=== PATIENT | male | born 1970 | race Caucasian/White ===

== ENCOUNTER 2021-10-02 11:35 | Emergency (ER) | payer OTHER ==
[~2021-10-02] VITALS: Ht 175.3 cm; Wt 88.5 kg
[2021-10-02] MEDS ORDERED: GENVOYA TABLET1 EACH (11:41)
== END 2021-10-02 15:37 | disposition home or self-care (01) ==
LOC: ER 11:35
DX: K52.89 Other specified noninfective gastroenteritis and colitis (principal); Z88.6 Allergy status to analgesic agent

== ENCOUNTER 2021-12-02 09:49 | Emergency (ER) | payer OTHER ==
[~2021-12-02] VITALS: Ht 175.3 cm; Wt 90.7 kg
[~2021-12-02 09:49] MED LIST: GENVOYA TABLET1 EACH
== END 2021-12-02 15:11 | disposition home or self-care (01) ==
LOC: ER 09:49
DX: K29.70 Gastritis, unspecified, without bleeding (principal); A49.3 Mycoplasma infection, unspecified site; Z20.822 Contact with and (suspected) exposure to COVID-19

== ENCOUNTER 2023-03-05 14:36 | Emergency (ER) | payer OTHER ==
[~2023-03-05] VITALS: Ht 172.7 cm; Wt 95.3 kg
[2023-03-05] MEDS ORDERED: LOSARTAN POTASS25 MG PO (15:11)
[2023-03-05] MEDS ORDERED: COZAAR25 MG PO (15:12)
[2023-03-05] MEDS ORDERED: BACTRIM DS TAB1 EACH PO (19:52)
== END 2023-03-05 20:59 | disposition home or self-care (01) ==
LOC: ER 14:36
DX: N39.0 Urinary tract infection, site not specified (principal); R10.9 Unspecified abdominal pain; Z88.6 Allergy status to analgesic agent

== ENCOUNTER 2025-06-13 22:02 | Inpatient (IN) | payer OTHER ==
[~2025-06-13] VITALS: Ht 172.7 cm; Wt 88.5 kg
[~2025-06-13 22:02] MED LIST changes: +BACTRIM DS TAB1 EACH PO; +COZAAR25 MG PO; +LOSARTAN POTASS25 MG PO
[2025-06-13] MEDS ORDERED: GENVOYA TABLET1 EACH PO (22:07)
[2025-06-13] MEDS ORDERED: MORPHINE SULFATE 4 MG/ML CARTRIDGE IV STA (23:33)
[2025-06-13] MEDS ORDERED: 0.9 % SODIUM CHLORIDE 1,000 ML IV ONE (23:45)
[2025-06-14] MEDS ORDERED: CEFTRIAXONE SODIUM 1,000 MG VIAL IV STA (00:04)
[2025-06-14 00:07] LABS: BASO % 0.5 % (0.1-1.2); EOS # 0.10 (0.04-0.54); EOS % 0.5 % (0.7-7.0); LYMPH # 2.75 (1.18-3.74); LYMPH % 14.2 % (19.3-53.1); MEAN PLATELET VOLUME 9.10 fl (9.4-12.4); MONO # 2.25 (0.24-0.82); MONO % 11.7 % (4.7-12.5); NEUT # 13.87 (1.56-6.13); NEUT % 71.9 % (34.0-71.1); RED CELL DISTRIBUTION WIDTH 13.2 % (11.6-14.4)
[2025-06-14 00:33] LABS: INR 1.09
[2025-06-14 00:40] LABS: ALT/SGPT 56.0 U/L (12-78); AST/SGOT 23.0 U/L (15-37); BILIRUBIN TOTAL 0.47 mg/dL (0.3-1.2); BUN CREA RATIO 16.0 (7.0-25.0); CREATININE SERUM 1.29 mg/dL (0.70-1.30); GFR 58.49; GLOBULINA 3.5 G/DL (2.4-3.5); GLUCOSE FASTING 114.0 mg/dL (65-100); OSMOLALITY SERUM 274.0 MOSM/KG (275-295)
[2025-06-14] MEDS ORDERED: CEFTRIAXONE SODIUM 1,000 MG VIAL ONE (01:01)
[2025-06-14] MEDS ORDERED: ONDANSETRON HCL 2 MG/ML VIAL IV STA (01:33)
[2025-06-14] MEDS ORDERED: ONDANSETRON HCL 2 MG/ML VIAL ONE (01:40)
[2025-06-14] MEDS ORDERED: SODIUM CHLORIDE 0.45 % 1,000 ML IV SCH (16:15)
[2025-06-14] MEDS ORDERED: ONDANSETRON HCL 4 MG in DEXTROSE 5 % IN WATER 50 ML IV PRN (16:45)
[2025-06-14] MEDS ORDERED: LINEZOLID IN DEXTROSE 5% 600 MG/300 ML PIGGYBAG IV SCH (17:00)
[2025-06-14 17:50] LABS: BASO % 0.6 % (0.1-1.2); EOS # 0.24 (0.04-0.54); EOS % 1.6 % (0.7-7.0); LYMPH # 2.47 (1.18-3.74); LYMPH % 16.7 % (19.3-53.1); MEAN PLATELET VOLUME 9.20 fl (9.4-12.4); MONO # 1.50 (0.24-0.82); MONO % 10.1 % (4.7-12.5); NEUT # 10.39 (1.56-6.13); NEUT % 70.1 % (34.0-71.1); RED CELL DISTRIBUTION WIDTH 13.1 % (11.6-14.4)
[2025-06-14] MEDS ORDERED: ACETAMINOPHEN 500 MG GEL..CAP PO SCH (21:00)
[2025-06-14 22:14] VITALS: BP 111/75; O2SAT 97
[2025-06-15 02:29] VITALS: BP 101/66; O2SAT 98
[2025-06-15] MEDS ORDERED: LACTOBACILLUS ACIDOPHILUS 1 CAP CAP PO SCH (09:00)
[2025-06-15] MEDS ORDERED: LINEZOLID IN DEXTROSE 5% 600 MG/300 ML PIGGYBAG IV SCH (09:00)
[2025-06-15 10:22] VITALS: BP 119/82; O2SAT 97
[2025-06-15 10:57] LABS: URINE APPEARANCE Clear; URINE BILIRRUBIN Negative (NEGATIVE); URINE BLOOD Negative; URINE COLOR Yellow; URINE GLUCOSE Negative (NEGATIVE); URINE KETONE Negative (NEGATIVE); URINE LEUKOCYTE Negative; URINE NITRATE Negative; URINE PROTEIN Negative (NEGATIVE); URINE UROBILINOGEN 0.2 E.U./dl
[2025-06-15 11:01] LABS: URINE BACTERIA 4.7 uL (0.0-1933); URINE EPITHELIAL CELLS 3.6 uL (0.0-38.8)
[2025-06-15 11:20] LABS: URINE CAST 0.14 uL (0.0-1.40); URINE RBC 0.7 uL (0.0-20.8); URINE WBC 1.0 uL (0.0-23.2)
[2025-06-15 18:19] VITALS: BP 115/70
[2025-06-16 02:42] VITALS: BP 96/64; O2SAT 95
[2025-06-16] MEDS ORDERED: MUPIROCIN 22 GM OINT..GM TUBE NASAL SCH (09:00)
[2025-06-16] MEDS ORDERED: CHLORHEXIDINE GLUCONATE 120 ML BOTTLE TOP SCH (09:00)
[2025-06-16 09:27] VITALS: BP 113/76; O2SAT 97
[2025-06-16 19:33] VITALS: BP 125/84
[2025-06-17 01:23] VITALS: BP 93/60; O2SAT 97
[2025-06-17 10:16] VITALS: BP 104/69; O2SAT 97
[2025-06-17 19:10] VITALS: BP 101/42
[2025-06-18 01:17] VITALS: BP 95/57; O2SAT 96
[2025-06-18 06:28] LABS: BASO % 1.0 % (0.1-1.2); EOS # 0.17 (0.04-0.54); EOS % 1.7 % (0.7-7.0); LYMPH # 2.72 (1.18-3.74); LYMPH % 28.0 % (19.3-53.1); MEAN PLATELET VOLUME 9.10 fl (9.4-12.4); MONO # 0.88 (0.24-0.82); MONO % 9.0 % (4.7-12.5); NEUT # 5.40 (1.56-6.13); NEUT % 55.6 % (34.0-71.1); RED CELL DISTRIBUTION WIDTH 13.3 % (11.6-14.4)
[2025-06-18 06:57] LABS: ALT/SGPT 73.0 U/L (12-78); AST/SGOT 36.0 U/L (15-37); BILIRUBIN TOTAL 0.18 mg/dL (0.3-1.2); BUN CREA RATIO 21.0 (7.0-25.0); CREATININE SERUM 1.19 mg/dL (0.70-1.30); GFR 64.2; GLOBULINA 3.5 G/DL (2.4-3.5); GLUCOSE FASTING 106.0 mg/dL (65-100); OSMOLALITY SERUM 284.0 MOSM/KG (275-295)
[2025-06-18 07:37] LABS: BAND MAN 2.0 %; LYMPHOCYTE MAN 37.0 %; MONOCYTE MAN 6.0 %; NEUTROPHILS MAN 53.0 %
[2025-06-18] MEDS ORDERED: ELVITEG/COBI/EMTRIC/TENOFO ALA 1 EACH TABLET PO SCH (09:00)
[2025-06-18 09:42] VITALS: BP 114/73; O2SAT 99
[2025-06-18 17:55] VITALS: BP 113/69; O2SAT 97
[2025-06-19 03:22] VITALS: BP 98/63; O2SAT 97
[2025-06-19 08:39] VITALS: BP 109/70; O2SAT 99
[2025-06-19 17:11] VITALS: BP 127/76; O2SAT 95
[2025-06-20 02:44] VITALS: BP 109/75; O2SAT 97
[2025-06-20 08:45] VITALS: BP 125/83; O2SAT 98
[2025-06-20 17:49] VITALS: BP 128/84
[2025-06-21 03:14] VITALS: BP 100/63; O2SAT 97
[2025-06-21 10:06] VITALS: BP 110/73; BP 125/76; O2SAT 98
[2025-06-21] MEDS ORDERED: INTESTINEX680 M1 PO (12:53)
[2025-06-21] MEDS ORDERED: FAMOTIDINE20 MG PO (12:54)
[2025-06-21] MEDS ORDERED: CHLORHEXIDINE118 M1 TOP (12:54)
[2025-06-21] MEDS ORDERED: MUPIROCIN22 GM NASAL (12:55)
[2025-06-21] MEDS ORDERED: AVIDOXY100 MG PO (12:56)
[2025-06-21] MEDS ORDERED: JUVEN PACKET1 EAC1 PO (12:57)
== END 2025-06-21 16:46 | disposition home or self-care (01) | DRG 580 ==
LOC: ER 22:02 → MEDJ 06-14 17:23 → SEC-K 06-14 17:23 → MEDJ 06-14 18:39
PROVIDERS: General Practice; ADMIT Internal Medicine Cardiovascular Disease; ATTEND Internal Medicine Cardiovascular Disease
PROC: 0H96XZZ Drainage of Back Skin, External Approach (ICD-10-PCS; 2025-06-15)
PROC: 0JB73ZZ Excision of Back Subcutaneous Tissue and Fascia, Percutaneous Approach (ICD-10-PCS; principal; 2025-06-20)
DX: L02.212 Cutaneous abscess of back [any part, except buttock and flank] (principal); B20 Human immunodeficiency virus [HIV] disease; B95.61 Methicillin susceptible Staphylococcus aureus infection as the cause of diseases classified elsewhere; I10 Essential (primary) hypertension